=== PATIENT | female | born 1990 | race Caucasian/White ===

== ENCOUNTER 2017-11-15 15:54 | Emergency (ER) | payer OTHER ==
[2017-11-15] MEDS: predniSONE 20 MG TAB PO (16:17)
[2017-11-15] MEDS: ALBUTEROL 0.083% (NEB) 2.5 MG/3 ML AMP HHN (16:24)
== END 2017-11-15 17:13 | disposition home or self-care (01) ==
LOC: FTE 15:54
DX: J45.901 Unspecified asthma with (acute) exacerbation (principal)
CPT/HCPCS: 94664; 99284-25